=== PATIENT | female | born 1970 | race Caucasian/White ===

== ENCOUNTER 2017-11-08 21:41 | Emergency (ER) | payer OTHER ==
[2017-11-08 21:57] VITALS: BP 163/96
--- NOTE | 2017-11-08 22:18 | UC ---
Throat Pain/Nasal [place] HPI - HPI Summary HPI Summary: Saw dentist about 4 weeks ago due to facial pain and dental pain--advised no dental problem but dentist advised could be a sinus infection (? based on xray) . Has used advil off and on over the past month, maybe 3 times. Over the past day has increasing pain, sinus pressure, no fever, no photophobia, and pain is not relieved by 400mg of advil x 1 today - History of Current Complaint Chief Complaint: UCRespiratory Stated Complaint: HEADACHE,SINUSES Time Seen by Provider: 11/08/17 22:07 Hx Obtained From: Patient Hx Last Menstrual Period: 11/08/17 Onset/Duration: Gradual Onset, Lasting Weeks - 4 Severity: Moderate Pain Intensity: 7 Associated Signs & Symptoms: Positive: Sinus Discomfort - Epiglottits Risk Factors Epiglottis Risk Factors: Negative - Allergies/Home Medications Allergies/Adverse Reactions: Allergies Allergy/AdvReac Type Severity Reaction Status Date / Time No Known Allergies Allergy Verified 11/08/17 21:53 Home Medications: Home Medications NK [No Home Medications Reported] 11/08/17 [History Confirmed 11/08/17] PMH/Surg Hx/FS Hx/Imm Hx Previously Healthy: Yes - states blood pressure is not usually elevated - Surgical History Surgical History: None - Family History Known Family History: Positive: Cardiac Disease - mother, Hypertension - Social History Occupation: Employed Full-time Lives: With Family Alcohol Use: None Substance Use Type: None Smoking Status (MU): Never Smoked Tobacco - Immunization History Most Recent Tetanus Shot: UTD Review of Systems Constitutional: Fatigue, Other - denies hx of migraine. ENT: Ear Ache, Sinus Congestion Neurological: Headache Is Patient Immunocompromised?: No All Other Systems Reviewed And Are Negative: Yes Physical Exam Triage Information Reviewed: Yes Appearance: Ill-Appearing - looks mildly unwell, Pain Distress - mild to moderate. Vital Signs: Initial Vital Signs Temp 98.3 F 11/08/17 21:53 Pulse 64 11/08/17 21:53 Resp 16 11/08/17 21:53 BP 163/96 11/08/17 21:53 Pulse Ox 100 11/08/17 21:53 Eye Exam: Other - DELMER, no photophobia. Eyes: Positive: Conjunctiva Clear ENT Exam: Other - percussive sinus tenderness. ENT: Positive: Pharyngeal erythema, TMs normal - on left, right with moderate wax. Respiratory: Positive: Lungs clear, Normal breath sounds Cardiovascular: Positive: RRR, No Murmur Throat Pain/Nasal Course/Dx - Course Course Of Treatment: augmentin for sinusitis. - Differential Dx/Diagnosis Differential Diagnosis/HQI/PQRI: Pharyngitis, Sinusitis, Other - migraine Provider Diagnoses: pansinusitis Discharge - Sign-Out/Discharge Documenting (check all that apply): Patient Departure - Discharge Plan Condition: Stable Disposition: HOME Patient Education Materials: Sinusitis (ED) Referrals: No Primary Care Phys,NOPCP [Primary Care Provider] - Additional Instructions: Your blood pressure is elevated today to 163/96. Please have a recheck of your blood pressure within 2 weeks. Begin augmentin for treatment of suspected sinusitis. If you do not have relief within 4 days, you will need a follow up assessment. Use of over the counter Flonase 2 sprays to both nostrils once daily can help to decrease sinus pressure. Increase ibuprofen to 600mg twice daily for control of pain. - Billing Disposition and Condition Condition: STABLE Disposition: Home
[2017-11-08] MEDS ORDERED: Amoxicillin/Clavulanate TAB* 875 MG PO ONE (22:19)
== END 2017-11-08 22:46 | disposition home or self-care (01) ==
LOC: UCCORT 21:41
DX: J32.4 Chronic pansinusitis (principal)
CPT/HCPCS: 99202; A9270-GY; G0463